=== PATIENT | female | born 1975 | race Caucasian/White ===

== ENCOUNTER 2017-06-06 23:28 | Emergency (ER) | payer BC ==
[~2017-06-06] VITALS: Ht 162.6 cm; Wt 85.0 kg
[2017-06-06 23:30] VITALS: BP 187/91; PULSE 90; RESP 18; TEMP 97.6; O2SAT 97
--- NOTE | 2017-06-07 00:57 | PD ---
HPI Chief Complaint: Oral / Dental Pain or Problem Time Seen by Provider: 00:45 Travel History International Travel<30 days: No Contact w/Intl Traveler<30days: No Traveled to known affect area: No History of Present Illness HPI 42-year-old white female presents emergency department with complaints of dental pain. She states that she was having pain in her left upper maxilla for the past week or so. She was seen by her dentist on 2 occasions prior to her coming to [facility]. The patient states that she intends to fly home tomorrow and see her dentist. She was advised to come to the ER to get antibiotics and pain medicine. The patient states that her dentist removed part of her crown prior to coming down because he felt it was a contact issue. She denies any fever chills. No runny nose, cough or congestion. No ear pain or sore throat. Symptoms are moderate. She states that she has taken Tylenol and ibuprofen without relief. No exacerbating or alleviating activities. [facility] Past Medical History Narrative Medical Narcolepsy, hypertension Diminished Hearing: No Hypertension: Yes Kidney Stones: Yes Immunizations Current: Yes Seizures: Yes ?: Not Past Surgical History Endocrine Surgery: Yes (KIDNEY STONE REMOVAL) Social History Alcohol Use: Yes Tobacco Use: No Substance Use: No Allergies-Medications (Allergen,Severity, Reaction): Coded Allergies: No Known Allergies (Unverified , 06/06/17) Review of Systems General / Constitutional: No: Fever Eyes: No: Visual changes HENT: Positive: Dental Difficulties, No: Headaches, Sore Throat, Gingival Bleeding, Ear Discharge, Earache Cardiovascular: No: Chest Pain or Discomfort Respiratory: No: Shortness of Breath Gastrointestinal: No: Abdominal Pain Genitourinary: No: Dysuria Musculoskeletal: No: Pain Skin: No Rash Neurologic: No: Weakness Psychiatric: No: Depression Endocrine: No: Polydipsia Hematologic/Lymphatic: No: Easy Bruising Physical Exam Narrative GENERAL: Well-developed, well-nourished in no acute distress. Nontoxic appearing. Patient is examined in the presence of the nurse. HEAD: Normocephalic, atraumatic. EYES: Pupils equal round and reactive. Extraocular motions intact. No scleral icterus. No injection or drainage. ENT: TMs clear without erythema. The external auditory canals clear. Nose: clear . Posterior pharynx is pink and moist. No tonsillar edema or exudate. Uvula midline. Airway patent. I see no acute intraoral process. She does have a crown on her left upper second pre-molar. NECK: Trachea midline.Supple, nontender, moves head freely. No central bony tenderness or spasm. CARDIOVASCULAR: Regular rate and rhythm without murmurs, gallops, or rubs. RESPIRATORY: Clear to auscultation. Breath sounds equal bilaterally. No wheezes , rales, or rhonchi. GASTROINTESTINAL: Abdomen soft, non-tender, nondistended. No hepato-splenomegaly , or palpable masses. No guarding. EXTREMITIES: No clubbing, cyanosis, or edema. No joint tenderness, effusion, or edema noted. BACK: Nontender without deformity or crepitance. No flank tenderness. Data Data Last Documented VS Vital Signs Date Time Temp Pulse Resp B/P (MAP) Pulse Ox O2 Delivery O2 Flow Rate FiO2 06/06/17 23:30 97.6 90 18 187/91 (123) 97 [facility] Medical Decision Making Medical Screen Exam Complete: Yes Emergency Medical Condition: Yes Medical Record Reviewed: Yes Differential Diagnosis MDM: Moderate Differential diagnoses: Dental abscess, dental caries, osteitis, cellulitis, pulpitis Narrative Course Patient was given [place] 5 mg p.o. and amoxicillin 1 g p.o. Diagnosis Primary Impression: Dentalgia Additional Impression: Tooth pulpitis Patient Instructions: Narcotic given in the ED, General Instructions Additional Instructions: Rest. [place] gargles. [place] oil on cotton balls. 3 Advil every 6 hours. Amoxicillin and [place]. follow-up with a dentist as soon as possible. And return to the ER if any problems. Med/Other Pt SpecificInfo: Prescription(s) given Disposition: DISCHARGE HOME Condition: Stable Christian Caruso Jun 07, 2017 00:57
[2017-06-07] MEDS ORDERED: AMOX500T PO (00:59)
[2017-06-07] MEDS ORDERED: NORC5TAB PO (00:59)
[2017-06-07] MEDS ORDERED: ACETAMINOPHEN/HYDROcodone 325 MG/5 MG TAB PO ONE (01:00)
[2017-06-07] MEDS ORDERED: AMOXICILLIN (TRIHYDRATE) 500 MG CAP PO ONE (01:00)
== END 2017-06-07 01:12 | disposition home or self-care (01) ==
LOC: NEPD 23:28
DX: K04.01 Reversible pulpitis (principal)
CPT/HCPCS: 99283